=== PATIENT | female | born 1970 ===

== ENCOUNTER 2016-12-30 22:09 | Emergency (ER) | payer SELFPAY ==
[2016-12-30 22:09] VITALS: BMI 26.5
[2016-12-30] MEDS ORDERED: Sodium Chloride 0.9% 1,000 ML IV ONE (22:39)
[2016-12-30] MEDS ORDERED: Sucralfate 1 gm/10 ml Oral Susp UD PO STA (22:40)
[2016-12-30] MEDS ORDERED: Sucralfate 1 gm/10 ml Oral Susp UD ONE (22:53)
[2016-12-30] MEDS ORDERED: Sodium Chloride 0.9% 1,000 ML ONE (22:53)
[2016-12-30 23:00] LABS: HCG,QUALITATIVE URINE NEGATIVE (NEGATIVE)
--- NOTE | 2016-12-30 23:03 | C.PDOC ---
History Of Present Illness A 46 y/o F c/o on and off headache for the past 2 weeks with associated epigastric pain and nausea. Denies vomiting, diarrhea, fever, chills, chest pain , SOB, visual changes, weakness, or any other complaints. Time Seen by Provider: 12/30/16 22:58 Chief Complaint (Nursing): Headache History Per: Patient History/Exam Limitations: no limitations Onset/Duration Of Symptoms: Days (2 weeks) Current Symptoms Are (Timing): Still Present Severity: Mild Quality: "Pain" Associated Symptoms: denies: Photophobia, Blurred Vision, Nausea, Vomiting, Extremity Weakness Recent travel outside of the [place]: No Additional History Per: Patient Past Medical History Reviewed: Historical Data, Nursing Documentation, Vital Signs Vital Signs: Last Vital Signs Temp 97.9 F 12/31/16 00:30 Pulse 67 12/31/16 00:30 Resp 18 12/31/16 00:30 BP 113/70 12/31/16 00:30 Pulse Ox 100 12/31/16 00:30 - Medical History PMH: Denies: Chronic Kidney Disease Family History: States: Unknown Family Hx - Social History Hx Tobacco Use: No Hx Alcohol Use: No Hx Substance Use: No Review Of Systems Except As Marked, All Systems Reviewed And Found Negative. Constitutional: Negative for: Fever, Chills Eyes: Negative for: Vision Change Cardiovascular: Negative for: Chest Pain Respiratory: Negative for: Shortness of Breath Gastrointestinal: Positive for: Nausea, Abdominal Pain. Negative for: Vomiting , Diarrhea Neurological: Positive for: Headache. Negative for: Weakness Physical Exam - Physical Exam Appears: Non-toxic, No Acute Distress Skin: Warm, Dry Head: Atraumatic, Normacephalic Eye(s): bilateral: Normal Inspection, PERRL, EOMI, Other (Fundoscopy normal) Oral Mucosa: Moist Cardiovascular: Rhythm Regular Respiratory: Normal Breath Sounds, No Accessory Muscle Use, No Rales, No Rhonchi , No Wheezing Gastrointestinal/Abdominal: Soft, Tenderness (Epigastric tenderness), No Guarding, No Rebound Neurological/Psych: Oriented x3, Normal Speech, Normal Cognition ED Course And Treatment - Laboratory Results Result Diagrams: 12/30/16 23:06 12/30/16 23:06 O2 Sat by Pulse Oximetry: 100 (RA) Pulse Ox Interpretation: Normal Medical Decision Making Medical Decision Making: Impression: A 46 y/o F c/o on and off headache for the past 2 weeks with associated epigastric pain and nausea. Plans: -CT Head w/o -Blood labs -Pepcid -Toradol -Carafate Disposition Counseled Patient/Family Regarding: Diagnosis - Disposition Referrals: [facility] [Outside] Disposition: HOME/ ROUTINE Disposition Time: 00:56 Condition: STABLE Prescriptions: Famotidine [Pepcid] 20 mg PO BID #30 tab traMADol/Acetaminophen [Ultracet 325 MG-37.5 MG] 1 tab PO Q6 #14 tab Instructions: General Headache (ED), Gastritis (GEN) Forms: Gen Discharge Inst Chinese Print Language: HEBREW - POA Present On Arrival: None - Clinical Impression Clinical Impression: Headache, Gastritis - Scribe Statement The provider has reviewed the documentation as recorded by the Scribharris perez All medical record entries made by the Scribe were at my direction and personally dictated by me. I have reviewed the chart and agree that the record accurately reflects my personal performance of the history, physical exam, medical decision making, and the department course for this patient. I have also personally directed, reviewed, and agree with the discharge instructions and disposition.
[2016-12-30 23:09] LABS: BASO # 0.1 K/uL (0.0-0.2); BASO % 0.7 % (0.0-2.0); EOS % 0.4 % (0.0-4.0); HEMOGLOBIN 11.8 g/dL (11.0-16.0); LYMPH # 2.6 K/uL (1.0-4.3); LYMPH % 28.2 % (20.0-40.0); MEAN CORPUSCULAR HEMOGLOBIN 25.7 pg (27.0-31.0); MEAN CORPUSCULAR HGB CONC 31.9 g/dL (33.0-37.0); MEAN PLATELET VOLUME 10.5 fL (7.2-11.7); MONO # 0.6 K/uL (0.0-0.8); MONO % 6.1 % (0.0-10.0); NEUT # 5.9 K/uL (1.8-7.0); NEUT % 64.6 % (50.0-75.0); RBC 4.59 Mil/uL (3.80-5.20); RED CELL DISTRIBUTION WIDTH 14.7 % (11.5-14.5); WHITE BLOOD COUNT 9.1 K/uL (4.8-10.8)
[2016-12-30 23:10] LABS: SQUAMOUS EPITHIAL 4 /hpf (0-5); URINE BACTERIA RARE (<OCC); URINE BILIRUBIN NEGATIVE (NEGATIVE); URINE BLOOD NEGATIVE (NEGATIVE); URINE CLARITY Clear (Clear); URINE COLOR Straw (YELLOW); URINE GLUCOSE (UA) NORMAL (Normal); URINE LEUKOCYTE ESTERASE NEG Leu/uL (Negative); URINE NITRATE NEGATIVE (NEGATIVE); URINE PROTEIN NEGATIVE (NEGATIVE); URINE UROBILINOGEN NORMAL mg/dL (0.2-1.0)
[2016-12-30 23:11] LABS: MEAN CELL VOLUME 80.6 fL (81.0-99.0)
[2016-12-30 23:25] LABS: ALBUMIN 4.1 g/dL (3.5-5.0)
[2016-12-30 23:27] LABS: GFR AFRICAN-AMERICAN > 60; GFR NON-AFRICAN AMERICAN > 60
[2016-12-30 23:28] LABS: ALB/GLOB RATIO 1.1 (1.0-2.1); ALT/SGPT 25 U/L (9-52); AST/SGOT 24 U/L (14-36); BLOOD UREA NITROGEN 13 mg/dL (7-17); CALCIUM 9.3 mg/dl (8.6-10.4)
--- NOTE | 2016-12-31 08:41 | CT ---
PROCEDURE: CT HEAD WITHOUT CONTRAST. HISTORY: Headache COMPARISON: Comparison is made to the previous study dated 09/02/2015 TECHNIQUE: Axial computed tomography images were obtained through the head/brain without intravenous contrast. Radiation dose: Total exam DLP = 883.7 mGy-cm. This CT exam was performed using one or more of the following dose reduction techniques: Automated exposure control, adjustment of the mA and/or kV according to patient size, and/or use of iterative reconstruction technique. FINDINGS: HEMORRHAGE: No intracranial hemorrhage. BRAIN: No mass effect or edema. No atrophy or chronic microvascular ischemic changes. VENTRICLES: Unremarkable. No hydrocephalus. CALVARIUM: Unremarkable. PARANASAL SINUSES: Unremarkable as visualized. No significant inflammatory changes. MASTOID AIR CELLS: Unremarkable as visualized. No inflammatory changes. OTHER FINDINGS: None. IMPRESSION: No evidence of acute intracranial hemorrhage intracranial collection mass effect or midline shift. Preliminary report was submitted by virtual Radiology.
[2016-12-31 12:15] VITALS: BP 113/70; PULSE 67; RESP 18; TEMP 97.9; O2SAT 100
== END 2016-12-31 01:15 | disposition home or self-care (01) ==
LOC: C.ER 22:09
DX: R51 Headache (principal); K29.70 Gastritis, unspecified, without bleeding
CPT/HCPCS: 70450; 80053; 81001; 84703; 85025; 96374; 96375; 99285; J1885; J7040

== ENCOUNTER 2017-12-02 21:04 | Emergency (ER) | payer SELFPAY ==
[2017-12-02 21:04] VITALS: BMI 26.5
[2017-12-02 21:18] VITALS: BP 160/85; PULSE 60; TEMP 98.1; O2SAT 97
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
[2017-12-02 23:08] VITALS: RESP 20
--- NOTE | 2017-12-05 12:10 | CARD ---
APPROVED REPORT EKG Measurement Heart [id number] <Conclusion> Sinus bradycardia T wave abnormality, consider anterior ischemia Abnormal ECG
== END 2017-12-02 23:07 | disposition home or self-care (01) ==
LOC: C.ER 21:04
DX: F41.9 Anxiety disorder, unspecified (principal)

== ENCOUNTER 2018-07-26 07:22 | Outpatient (CLI) | payer SELFPAY | END 2018-08-07 10:23 | disposition home or self-care (01) | LOC: C.LAB 07:22 | DX: Z13.220 Encounter for screening for lipoid disorders (principal) ==

== ENCOUNTER 2018-08-07 10:29 | Outpatient (CLI) | payer SELFPAY | END 2018-08-07 10:30 | disposition home or self-care (01) | LOC: C.LAB 10:29 | DX: Z01.419 Encounter for gynecological examination (general) (routine) without abnormal findings (principal) ==

== ENCOUNTER 2018-08-22 08:15 | Outpatient (CLI) | payer SELFPAY | END 2018-08-22 08:16 | disposition home or self-care (01) | LOC: C.USIC 08:16 | DX: R10.2 Pelvic and perineal pain (principal) ==

== ENCOUNTER 2018-08-29 13:17 | Outpatient (CLI) | payer SELFPAY | END 2018-08-29 13:18 | disposition home or self-care (01) | LOC: C.USIC 13:17 ==

== ENCOUNTER 2018-09-29 21:37 | Emergency (ER) | payer SELFPAY ==
[2018-09-29 21:37] VITALS: BMI 26.5
[2018-09-29 21:47] VITALS: BP 128/83; PULSE 59; TEMP 97.8; O2SAT 99
--- NOTE | 2018-09-29 22:41 | C.PDOC ---
History Of Present Illness 47 year old female presents to the emergency department with complaints of occipital headache for the last few hours. 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 Patient reports occasional headache, and reports taking Motrin with mild improvement. Patient is concerned she is having a problem with a catastrophic pathology. She admits to being seen last month for a panic attack. Time Seen by Provider: 09/29/18 21:58 Chief Complaint (Nursing): Headache History Per: Patient History/Exam Limitations: no limitations Onset/Duration Of Symptoms: Hrs Current Symptoms Are (Timing): Still Present Quality: Aching Preceeding Symptoms: None Past Medical History Reviewed: Historical Data, Nursing Documentation, Vital Signs Vital Signs: Last Vital Signs Temp 97.8 F 09/29/18 21:43 Pulse 59 L 09/29/18 21:43 Resp 18 09/29/18 21:43 BP 128/83 09/29/18 21:43 Pulse Ox 99 09/29/18 21:43 - Medical History PMH: No Chronic Diseases Denies: Chronic Kidney Disease Surgical History: No Surg Hx Family History: States: No Known Family Hx - Social History Hx Tobacco Use: No Hx Alcohol Use: No Hx Substance Use: No - Immunization History Hx Tetanus Toxoid Vaccination: No Hx Influenza Vaccination: No Hx Pneumococcal Vaccination: No Review Of Systems Except As Marked, All Systems Reviewed And Found Negative. Constitutional: Negative for: Fever, Chills Cardiovascular: Negative for: Chest Pain Respiratory: Negative for: Cough, Shortness of Breath Neurological: Positive for: Headache Physical Exam - Physical Exam Appears: Non-toxic, No Acute Distress, Other (mildly anxious) Skin: Normal Color, Dry Head: Atraumatic, Normacephalic, Tenderness (tenderness to posterior scalp) Eye(s): bilateral: Normal Inspection, PERRL, EOMI Nose: Normal Oral Mucosa: Moist Chest: Symmetrical, No Tenderness Cardiovascular: Rhythm Regular, No Murmur Respiratory: Normal Breath Sounds, No Rales, No Rhonchi, No Wheezing Extremity: Normal ROM Neurological/Psych: Oriented x3, Normal Speech, Normal Cognition, Normal Cranial Nerves, Normal Motor, Normal Sensation ED Course And Treatment O2 Sat by Pulse Oximetry: 99 (RA) Pulse Ox Interpretation: Normal Medical Decision Making Medical Decision Making: muscle tension headache working [employer], head down many hours improved with toradol/ice pack Plan: Toradol 60mg IM Disposition Doctor Will See Patient In The: Office Counseled Patient/Family Regarding: Studies Performed, Diagnosis - Disposition Referrals: Non [facility] Provider, [Primary Care Provider] - Disposition: HOME/ ROUTINE Disposition Time: 22:40 Condition: GOOD Additional Instructions: sigue [place] de hiel[place] atras de la [place] 1/2 hora por hora, nada caliente hoy Ibuprofeno 400-600 mg cada 6 horas micaela necessario Instructions: Tension Headache (DC) Forms: [employer] (Georgian) - Clinical Impression Clinical Impression: Headache - Scribe Statement The provider has reviewed the documentation as recorded by the Scribe (Mark Junior) Provider Attestation: All medical record entries made by the Scribe were at my direction and personally dictated by me. I have reviewed the chart and agree that the record accurately reflects my personal performance of the history, physical exam, medical decision making, and the department course for this patient. I have also personally directed, reviewed, and agree with the discharge instructions and disposition.
[2018-09-29 22:54] VITALS: RESP 20
== END 2018-09-29 22:54 | disposition home or self-care (01) ==
LOC: SUPCPDRO 21:37 → C.ER 21:37
DX: R51 Headache (principal)
CPT/HCPCS: 96372; 99284; J1885